=== PATIENT | female | born 1985 | race Two or more races ===

== ENCOUNTER 2018-02-17 18:23 | Inpatient (IN) | payer SELFPAY ==
[~2018-02-17] VITALS: Ht 167.6 cm; Wt 68.6 kg
[2018-02-17 21:06] LABS: Urine Bacteria NONE SEEN /hpf (None Seen); Urine Blood Negative /uL (Negative); Urine Mucus FEW (None Seen); Urine Specific Gravity 1.025 (1.001-1.035); Urine WBC <1 /hpf (0 - 5)
[2018-02-17 21:11] LABS: Basophils # (auto) 0 uL; Eosinophils # (auto) 0.1 uL; Eosinophils % (auto) 1.2 % (0.0-7.0); Mean Corpuscular Hgb Conc. 32.7 g/dL (32.0-36.0); Monocytes # (auto) 0.7 uL; Red Cell Distribution Width 15.3 % (11.8-14.3); White Blood Cell 8.6 10^3/uL (4.4-10.8)
[2018-02-17 21:13] LABS: Basophils % (auto) 0.6 % (0.0-2.0); Hematocrit 38.4 % (36.0-46.0); Hemoglobin 12.5 g/dL (12.2-16.2); Lymphocytes # (auto) 1.7 uL; Lymphocytes % (auto) 20.2 % (10.0-50.0); Mean Corpuscular Hemoglobin 27.2 pg (28.0-32.0); Mean Corpuscular Volume 83.2 fL (80.0-100.0); Monocytes % (auto) 8.5 % (0.0-12.0); Neutrophils % (auto) 69.5 % (37.0-80.0); Nucleated Red Blood Cells % 0.1 %; Platelet Count (auto) 322 10^3/uL (140-450); Red Blood Cells 4.61 10^6/uL (4.0-5.20)
[2018-02-17 21:20] LABS: Alcohol, Urine < 3.0 mg/dL (0-5); Amphetamine Screen, Urine NEGATIVE (NEGATIVE); Barbiturate Scree,Urine NEGATIVE (NEGATIVE); Benzodiazephine Screen, Urine NEGATIVE (NEGATIVE); Cannabinoid Screen, Urine POSITIVE (NEGATIVE); Cocaine Screen, Urine NEGATIVE (NEGATIVE); Opiate Scree,Urine NEGATIVE (NEGATIVE); Phencyclidine Screen, Urine NEGATIVE (NEGATIVE)
[2018-02-17 21:29] LABS: Alanine Aminotransferase 19 U/L (13-56); Albumin 3.4 g/dL (3.4-5.0); Anion Gap 6 (5-15); Aspartate Aminotransferase 12 U/L (15-37); BUN/Creatinine Ratio 13.4; Blood Urea Nitrogen 11 mg/dL (7-18); Calcium 9.1 mg/dL (8.5-10.1); Carbon Dioxide 28 mmol/L (21-32); Chloride 107 mmol/L (98-107); GFR African American 105 mL/min; GFR Non-African American 87 mL/min; Glucose 82 mg/dL (74-106); Magnesium 2.2 mg/dL (1.6-2.6); Potassium 4.4 mmol/L (3.5-5.1); Sodium 141 mmol/L (136-145)
[2018-02-17 21:34] LABS: Alkaline Phosphatase 72 U/L (45-117); Bilirubin, Total 0.2 mg/dL (0.2-1.0); Total Protein 7.3 g/dL (6.4-8.2)
[2018-02-17] MEDS ORDERED: IOHEXOL 350 MG/ML 100ML IJ ONE (23:28)
[2018-02-17] MEDS ORDERED: KETOROLAC TROMETH 30 MG/ML 1ML VIAL IV ONE (23:30)
[2018-02-18] MEDS ORDERED: ENOXAPARIN SOD 60 MG/0.6 ML SYRINGE SC ONE (01:45)
[2018-02-18 02:12] LABS: INR 0.9 (0.9-1.15); Partial Thromboplastin Time 25.6 sec (22.64-33.71); Prothrombin Time 9.8 sec (9.37-12.3)
[2018-02-18] MEDS: SODIUM CHLORIDE 0.9% 1,000 ML IV SCH ×2 (03:03→16:46)
[2018-02-18] MEDS ORDERED: MORPHINE SULFATE 8mg/ml INJ SDV IV PRN (03:15)
[2018-02-18] MEDS ORDERED: NITROGLYCERIN 0.4 MG SL TAB SL PRN (03:15)
[2018-02-18] MEDS ORDERED: TEMAZEPAM 15 MG CAP PO PRN (03:15)
[2018-02-18] MEDS ORDERED: ACETAMINOPHEN 325 MG TAB PO PRN (03:15)
[2018-02-18] MEDS ORDERED: ONDANSETRON HCL 4 MG/2 ML VIAL IV PRN (03:15)
[2018-02-18 05:15] VITALS: BP 112/78
[2018-02-18] MEDS: HYDROcodone-ACET 5/325MG TAB PO PRN ×4 (05:21→21:48)
[2018-02-18 05:58] VITALS: BP 112/78
[2018-02-18 08:00] VITALS: BP 103/63
[2018-02-18] MEDS: FAMOTIDINE 20 MG TAB PO SCH ×2 (09:09→21:48)
[2018-02-18 12:39] VITALS: BP 112/78
[2018-02-18] MEDS: ENOXAPARIN SOD 60 MG/0.6 ML SYRINGE SC SCH (13:41)
[2018-02-18 17:22] VITALS: BP 147/78
[2018-02-18 22:00] VITALS: BP 122/80
[2018-02-19] MEDS: ENOXAPARIN SOD 60 MG/0.6 ML SYRINGE SC SCH (01:37)
[2018-02-19] MEDS: SODIUM CHLORIDE 0.9% 1,000 ML IV SCH (04:48)
[2018-02-19] MEDS: HYDROcodone-ACET 5/325MG TAB PO PRN ×2 (04:49→09:46)
[2018-02-19 05:00] VITALS: BP 100/64
[2018-02-19 06:13] LABS: Basophils # (auto) 0 uL; Basophils % (auto) 0.5 % (0.0-2.0); Eosinophils # (auto) 0.2 uL; Eosinophils % (auto) 2.6 % (0.0-7.0); Hematocrit 34.9 % (36.0-46.0); Hemoglobin 11.8 g/dL (12.2-16.2); Lymphocytes # (auto) 2.1 uL; Lymphocytes % (auto) 29.1 % (10.0-50.0); Mean Corpuscular Hgb Conc. 33.8 g/dL (32.0-36.0); Mean Corpuscular Volume 82.8 fL (80.0-100.0); Monocytes # (auto) 0.6 uL; Monocytes % (auto) 8.9 % (0.0-12.0); Neutrophils # (auto) 4.2 uL; Neutrophils % (auto) 58.9 % (37.0-80.0); Nucleated Red Blood Cells % 0.1 %; Platelet Count (auto) 274 10^3/uL (140-450); Red Blood Cells 4.22 10^6/uL (4.0-5.20); Red Cell Distribution Width 15.1 % (11.8-14.3); White Blood Cell 7.1 10^3/uL (4.4-10.8)
[2018-02-19 06:30] LABS: Albumin 2.7 g/dL (3.4-5.0); BUN/Creatinine Ratio 16.7; Calcium 8.2 mg/dL (8.5-10.1)
[2018-02-19 06:33] LABS: Bilirubin, Total 0.3 mg/dL (0.2-1.0)
[2018-02-19 09:00] VITALS: BP 105/50
[2018-02-19] MEDS: FAMOTIDINE 20 MG TAB PO SCH (09:46)
[2018-02-19] MEDS ORDERED: APIXABAN 5 MG TAB PO SCH (10:00)
[2018-02-19 12:00] VITALS: BP 115/58
[2018-02-26] MEDS ORDERED: APIXABAN 5 MG TAB PO SCH (10:00)
== END 2018-02-19 12:00 | disposition home or self-care (01) | DRG 176 ==
LOC: ER 18:23 → TELE 18:24 → TELE-WESTW 02-18 04:27
PROVIDERS: ADMIT Nurse Practitioner; ATTEND Internal Medicine
DX: I26.99 Other pulmonary embolism without acute cor pulmonale (principal); G47.00 Insomnia, unspecified; R06.03 Acute respiratory distress
CPT/HCPCS: 36415; 71046; 71275; 80053; 80307; 81001; 81025; 81241; 83090; 83735; 84484; 85025; 85302; 85305; 85306; 85610; 85613; 85670; 85705; 85730; 85732; 93005; 93306; 93970; 96361; 96372; 96374; J1885

== ENCOUNTER 2020-04-30 08:35 | Observation (INO) | payer MEDICAID ==
--- NOTE | 2020-04-30 08:55 | NUR ---
Covid testing Pt [facility] for [facility] Covid [facility] testing. Escorted to room 5. Consent signed and Handout given. Specimen obtain per protocol and sent to Lab. 09--Pt ambulates off unit with steady gait. No distress. To return on 05/02/20 for scheduled C/S.
== END 2020-04-30 09:05 | disposition home or self-care (01) | DRG 861 ==
LOC: LDRP 08:35 → UNDODISOB 08:35
PROVIDERS: ADMIT Specialist; ATTEND Specialist
DX: Z03.818 Encounter for observation for suspected exposure to other biological agents ruled out (principal); O26.893 Other specified pregnancy related conditions, third trimester; Z3A.39 39 weeks gestation of pregnancy
CPT/HCPCS: G0378; U0003

== ENCOUNTER 2020-05-02 08:23 | Observation (INO) | payer MEDICAID | END 2020-05-02 10:25 | disposition home or self-care (01) | LOC: LDRP 08:23 → OBSVTOIN 08:23 → INTOOBSV 08:23 | PROVIDERS: ADMIT Specialist; ATTEND Specialist | DX: O26.893 Other specified pregnancy related conditions, third trimester (principal); Z88.0 Allergy status to penicillin; Z86.711 Personal history of pulmonary embolism; Z3A.39 39 weeks gestation of pregnancy | CPT/HCPCS: 59025; 76818; 81002; G0378 ==

== ENCOUNTER 2020-05-03 04:12 | Inpatient (IN) | payer MEDICAID ==
[2020-05-03] VITALS (16 sets, daily range): BP systolic 109–119; BP diastolic 59–83
[~2020-05-03] VITALS: Ht 167.6 cm; Wt 81.6 kg
[2020-05-03] MEDS: LACTATED RINGER'S 1,000 ML IV SCH ×2 (04:25→14:30)
[2020-05-03 05:45] LABS: Basophils # (auto) 0.1 10 ^3/uL (0-0.2); Basophils % (auto) 0.6 % (0.0-2.0); Eosinophils # (auto) 0.1 10 ^3/uL (0-0.8); Eosinophils % (auto) 0.6 % (0.0-7.0); Hematocrit 34.6 % (36.0-46.0); Hemoglobin 11.3 g/dL (12.2-16.2); Lymphocytes # (auto) 1.8 10 ^3/uL (0.4-5.4); Lymphocytes % (auto) 18.2 % (10.0-50.0); Mean Corpuscular Hemoglobin 27.6 pg (28.0-32.0); Mean Corpuscular Hgb Conc. 32.5 g/dL (32.0-36.0); Mean Corpuscular Volume 84.8 fL (80.0-100.0); Monocytes # (auto) 0.7 10 ^3/uL (0-1.3); Monocytes % (auto) 6.7 % (0.0-12.0); Neutrophils # (auto) 7.3 10 ^3/uL (1.6-8.6); Neutrophils % (auto) 73.9 % (37.0-80.0); Platelet Count (auto) 250 10^3/uL (140-450); Red Blood Cells 4.08 10^6/uL (4.0-5.20); Red Cell Distribution Width 17.1 % (11.8-14.3); White Blood Cell 9.9 10^3/uL (4.4-10.8)
[2020-05-03 05:55] LABS: Urine Bacteria FEW /hpf (None Seen); Urine Blood Negative /uL (Negative); Urine Mucus FEW (None Seen); Urine Specific Gravity 1.017 (1.001-1.035); Urine WBC 9 /hpf (0 - 5)
[2020-05-03 06:04] LABS: Albumin 2.7 g/dL (3.4-5.0); Calcium 8.8 mg/dL (8.5-10.1); Potassium 3.6 mmol/L (3.5-5.1)
[2020-05-03 06:04] LABS: Alcohol, Urine < 3.0 mg/dL (0-10); Amphetamine Screen, Urine NEGATIVE (NEGATIVE); Barbiturate Scree,Urine NEGATIVE (NEGATIVE); Benzodiazephine Screen, Urine NEGATIVE (NEGATIVE); Cannabinoid Screen, Urine POSITIVE (NEGATIVE); Cocaine Screen, Urine NEGATIVE (NEGATIVE); Opiate Scree,Urine NEGATIVE (NEGATIVE); Phencyclidine Screen, Urine NEGATIVE (NEGATIVE)
[2020-05-03 06:08] LABS: BUN/Creatinine Ratio 9.7; Bilirubin, Total 0.3 mg/dL (0.2-1.0); Total Protein 6.4 g/dL (6.4-8.2)
[2020-05-03 06:15] LABS: INR 0.94 (0.9-1.15); Partial Thromboplastin Time 23.6 sec (23.64-32.05)
[2020-05-03] MEDS ORDERED: TETRACAINE 1% INJ 2 ML VIAL IJ ONE (07:05)
[2020-05-03] MEDS ORDERED: SUCCINYLCHOLINE CHLORIDE 20 MG/ML 10ML VIAL IV ONE (07:37)
[2020-05-03] MEDS ORDERED: MORPHINE SULF(PF) 0.5MG/ML 10ML VIAL ONE (07:45)
[2020-05-03] MEDS ORDERED: fentaNYL CITRATE 100 MCG/2 ML VL ONE (07:45)
[2020-05-03] MEDS ORDERED: CLINDAMYCIN 600MG IV 50 ML IV ONE (08:18)
[2020-05-03] MEDS ORDERED: diphenhdrAMINE HCL 50 MG/1 ML VL IV PRN (09:00)
[2020-05-03] MEDS ORDERED: NALOXONE HCL 0.4 MG/ML VIAL IV PRN (09:00)
[2020-05-03] MEDS ORDERED: LACTATED RINGER'S 1,000 ML IV SCH (09:06)
[2020-05-03] MEDS ORDERED: ONDANSETRON HCL 4 MG/2 ML VIAL IV PRN (09:15)
[2020-05-03] MEDS ORDERED: ACETAMINOPHEN IV 1000 MG/100ML (10MG/ML) IV ONE (09:15)
[2020-05-03] MEDS: ONDANSETRON HCL 4 MG/2 ML VIAL IV PRN ×2 (09:30→10:31)
[2020-05-03] MEDS ORDERED: CLINDAMYCIN 600MG IV 50 ML IV SCH (12:00)
[2020-05-03] MEDS: KETOROLAC TROMETH 30 MG/ML 1ML VIAL IV SCH ×2 (12:05→18:07)
[2020-05-03] MEDS: CLINDAMYCIN 600MG IV 50 ML IV SCH ×2 (14:19→20:16)
[2020-05-03] MEDS: HYDROmorphone HCL 2 MG/ML VL IV PRN (22:51)
[2020-05-04] MEDS: LACTATED RINGER'S 1,000 ML IV SCH (00:15)
[2020-05-04] MEDS: KETOROLAC TROMETH 30 MG/ML 1ML VIAL IV SCH ×2 (00:15→05:02)
[2020-05-04] MEDS: CLINDAMYCIN 600MG IV 50 ML IV SCH ×2 (02:30→08:08)
[2020-05-04 03:30] VITALS: BP 119/67
[2020-05-04 07:30] VITALS: BP 108/75
[2020-05-04] MEDS: HYDROmorphone HCL 2 MG/ML VL IV PRN (07:35)
[2020-05-04 07:41] LABS: Basophils # (auto) 0 10 ^3/uL (0-0.2); Basophils % (auto) 0.2 % (0.0-2.0); Eosinophils # (auto) 0 10 ^3/uL (0-0.8); Eosinophils % (auto) 0.3 % (0.0-7.0); Lymphocytes # (auto) 1.4 10 ^3/uL (0.4-5.4); Lymphocytes % (auto) 10.9 % (10.0-50.0); Mean Corpuscular Hemoglobin 27.3 pg (28.0-32.0); Mean Corpuscular Hgb Conc. 32.2 g/dL (32.0-36.0); Mean Corpuscular Volume 84.9 fL (80.0-100.0); Monocytes # (auto) 0.8 10 ^3/uL (0-1.3); Monocytes % (auto) 6.2 % (0.0-12.0); Neutrophils # (auto) 10.4 10 ^3/uL (1.6-8.6); Neutrophils % (auto) 82.4 % (37.0-80.0); Platelet Count (auto) 218 10^3/uL (140-450); Red Blood Cells 3.65 10^6/uL (4.0-5.20); Red Cell Distribution Width 17.3 % (11.8-14.3); White Blood Cell 12.6 10^3/uL (4.4-10.8)
[2020-05-04] MEDS ORDERED: HYDROcodone-ACET 5/325MG TAB PO PRN (08:45)
[2020-05-04] MEDS: SIMETHICONE 80 MG CHEWABLE TABLET PO PRN ×2 (10:13→21:53)
[2020-05-04] MEDS: HYDROcodone-ACET 5/325MG TAB PO PRN ×3 (10:14→19:31)
[2020-05-04] MEDS: DOCUSATE SOD 100 MG CAP PO SCH ×2 (10:14→21:53)
[2020-05-04 10:50] VITALS: BP 117/70
[2020-05-04 12:34] LABS: RPR Non Reactive (Non Reactive)
[2020-05-04] MEDS: IBUPROFEN 800 MG TAB PO PRN ×2 (12:36→21:53)
[2020-05-04 15:30] VITALS: BP 114/72
[2020-05-04 19:00] VITALS: BP 118/76
[2020-05-04 23:00] VITALS: BP 130/77
[2020-05-05] MEDS ORDERED: PREN-96 PO (00:42)
[2020-05-05] MEDS: HYDROcodone-ACET 5/325MG TAB PO PRN ×5 (00:56→19:01)
[2020-05-05 03:00] VITALS: BP 115/75
[2020-05-05 07:10] VITALS: BP 125/68
[2020-05-05] MEDS: IBUPROFEN 800 MG TAB PO PRN ×3 (07:40→23:48)
[2020-05-05] MEDS: SIMETHICONE 80 MG CHEWABLE TABLET PO PRN (09:33)
[2020-05-05] MEDS: DOCUSATE SOD 100 MG CAP PO SCH ×2 (09:33→22:05)
[2020-05-05 11:17] VITALS: BP 112/71
[2020-05-05 15:16] VITALS: BP 120/72
[2020-05-05 18:30] VITALS: BP 129/72
[2020-05-05] MEDS ORDERED: BISACODYL 10 MG RECT SUPP PR PRN (21:45)
[2020-05-05 23:50] VITALS: BP 136/73
[2020-05-06] MEDS: HYDROcodone-ACET 5/325MG TAB PO PRN ×3 (02:44→13:31)
[2020-05-06 03:30] VITALS: BP 123/68
[2020-05-06] MEDS ORDERED: TETANUS-DIPTH-ACEL PERTUSSIS 0.5ML SYR Tdap IM ONE (04:45)
[2020-05-06] MEDS ORDERED: MEASLES, MUMPS & RUBELLA VAC(MMRII) 0.5ML SC ONE (04:45)
[2020-05-06 07:00] VITALS: BP 129/93
[2020-05-06] MEDS: DOCUSATE SOD 100 MG CAP PO SCH (09:55)
[2020-05-06 11:00] VITALS: BP 121/93
[2020-05-06] MEDS: IBUPROFEN 800 MG TAB PO PRN (11:45)
[2020-05-06 15:02] VITALS: BP 122/86
== END 2020-05-06 15:10 | disposition home or self-care (01) | DRG 540 ==
LOC: LDRP 04:12
PROVIDERS: ADMIT Specialist; ATTEND Specialist
PROC: 0UL70CZ Occlusion of Bilateral Fallopian Tubes with Extraluminal Device, Open Approach (ICD-10-PCS; 2020-05-03)
PROC: 10D00Z1 Extraction of Products of Conception, Low, Open Approach (ICD-10-PCS; principal; 2020-05-03 07:45)
DX: O34.211 Maternal care for low transverse scar from previous cesarean delivery (principal); J45.909 Unspecified asthma, uncomplicated; O99.52 Diseases of the respiratory system complicating childbirth; Z30.2 Encounter for sterilization; Z37.0 Single live birth; Z3A.39 39 weeks gestation of pregnancy; Z88.0 Allergy status to penicillin
CPT/HCPCS: 36415; 59025; 80053; 80307; 81001; 84112; 85025; 85610; 85730; 86592; 86850; 86900; 86901; 90715; 96360; 96361; 96372; G0378; J0131; J0330; J1885; J2405; J3490